=== PATIENT | male | born 1960 | race Caucasian/White ===

== ENCOUNTER → 2019-08-06 | Outpatient (CLI) | payer OTHER ==
--- NOTE | 2019-08-06 14:32 | PCVCIMAG ---
APPROVED REPORT Study performed: 08/06/2019 12:58:56 Exam: Stress Echocardiogram Indication: Atrial Fibrillation, Cardiomyopathy, CAD Patient Location: Echo lab Stress Nurse: Judy Fuentes RN Room #: 2 Status: routine Ht: 5 ft 10 in HR: 59 bpm BP: 122/64 mmHg Rhythm: Sinus Bradycardia Medical History Medical History: CAD non obstructive, PAF, Elev cor ca+ Previous Cardiac Procedures: none Pretest Chest Pain Characteristics: No chest pain Exercise History: Physically active Procedure The patient underwent an Exercise Stress Test using the Dameon Protocol. Blood pressure, heart rate, and EKG were monitored. An Echocardiogram was performed by on call pharmacy technician in four stages in quad fashion. At peak stress, four selected images were obtained and placed side by side with resting images for comparison. Stress Test Details Stress Test: Exercise stress testing was performed using a Dameon protocol. HR Resting HR: 59 bpmMax Heart Rate (APMHR): 163 bpm Max HR Achieved: 148 bpmTarget HR (85% APMHR): 138 bpm % of APMHR: 90 Recovery HR: 80 bpm HR response to stress: Normal HR response to stress BP Resting BP: 122/64 mmHg Max BP: 194/64 mmHg Recovery BP: 132/72 mmHg BP response to stress: Normal blood pressure response to stress. ECG Resting ECG: Sinus Rhythm Stress ECG: Sinus Rhythm ST Change: Non-ischemic Maximum ST Deviation: -0.60 mm Arrhythmia: Rare PACs Recovery ECG: Sinus Rhythm Recovery ST Change: Non-ischemic Recovery ST Deviation: 0.35 mm Recovery Arrhythmia: None Clinical Reason for Termination: Maximal effort Stress Symptoms: leg fatigue Exercise duration: 9 min 17 sec Highest Stage Achieved: Stage 4: 4.2 mph at 16% grade. Exercise capacity: 11.0 METs Overall Exercise Capacity for Age: Good Scale: Active Angina Score: None No complications. Stress ECG Conclusion Nugent Treadmill Score is 12.0 which is Low risk. Pre-Stress Echo The resting Echocardiogram showed normal left ventricular contractility with an estimated Ejection Fraction of about 55-60%. Normal wall motion in all segments on baseline images. Post-Stress Echo The stress Echocardiogram showed normal left ventricular contractility with an estimated Ejection Fraction of about 65-70%. Normal augmentation of wall motion in all segments on post stress images. Clinical No clinical or ECG evidence for ischemia. Conclusion Clinical Response: Non-ischemic Exercise Capacity: Superior Stress ECG Response: Non-ischemic Stress Echo Images: Non-ischemic Normal stress echocardiogram with maximal exercise stress. No clinical, EKG or echocardiographic evidence for ischemia. No echocardiographic evidence for exercise induced ischemia.Normal color doppler. No regurgitation or stenosis present on pulmonic, tricuspid and aortic valves. Trace mitral regurgitation is seen <Conclusion> Normal stress echocardiogram with maximal exercise stress. No clinical, EKG or echocardiographic evidence for ischemia. No echocardiographic evidence for exercise induced ischemia.Normal color doppler. No regurgitation or stenosis present on pulmonic, tricuspid and aortic valves. Trace mitral regurgitation is seen
== END | disposition home or self-care (01) ==
LOC: PCVCIMAG 13:59
PROVIDERS: ATTEND Internal Medicine Cardiovascular Disease
DX: I25.10 Atherosclerotic heart disease of native coronary artery without angina pectoris (principal); I48.91 Unspecified atrial fibrillation; I42.9 Cardiomyopathy, unspecified; R00.2 Palpitations; K21.9 Gastro-esophageal reflux disease without esophagitis; E78.5 Hyperlipidemia, unspecified; E03.9 Hypothyroidism, unspecified
CPT/HCPCS: 93325; 93351